=== PATIENT | female | born 1985 | race Caucasian/White ===

== ENCOUNTER 2016-10-04 20:00 | Emergency (ER) | payer MEDICAID ==
[~2016-10-04] VITALS: Ht 154.9 cm; Wt 68.0 kg
[2016-10-04 20:00] VITALS: BP_SYST 165
--- NOTE | 2016-10-04 20:00 | NUR ---
Patient to ER bed 6 to gown for evaluation. Side rails up. Report given to ANNAMARIE ELIZABETH.
--- NOTE | 2016-10-04 20:05 | NUR ---
Pt states having abdominal pain in upper left quadrant, pain scale 7/10 for last 2-3 days. Pt states having intermittent nausea, vomiting, and diarrhea since yesterday, abdomen round and tender to palpation. Pt states drinking beer earlier today at home. Pt denies any other complaints.
--- NOTE | 2016-10-04 20:05 | NUR ---
ER KATHY Gan at bedside examining patient.
[2016-10-04] MEDS ORDERED: PANTOPRAZOLE SODIUM 40 MG/VIAL (PROTONIX) IVP ONE (20:15)
[2016-10-04] MEDS ORDERED: NACL 0.9% 1,000 ML IV ONE (20:15)
[2016-10-04] MEDS ORDERED: ONDANSETRON HCL 4 MG/2 ML VIAL IVP ONE (20:15)
--- NOTE | 2016-10-04 21:00 | NUR ---
# 20 gauge angiocath placed to L AC. Use of asceptic technique. Blood return noted. Blood for lab drawn from site. Flushed with 10 cc of normal saline. No evidence of infiltration noted. Patient tolerated well.
[2016-10-04 21:01] LABS: BILIRUBIN,URINE NEGATIVE (NEGATIVE); BLOOD, URINE 2+ (NEGATIVE); CLARITY/URINE SL CLOUDY (CLEAR); COLOR,URINE YELLOW (YELLOW); GLUCOSE,URINE NEGATIVE (NEGATIVE); KETONES,URINE NEGATIVE (NEGATIVE); LEUKOCYTE ESTERASE ,URINE TRACE (NEGATIVE); NITRITE, URINE NEGATIVE (NEGATIVE); PROTEIN URINE 2+ (NEGATIVE); UROBILINOGEN,URINE 0.2 (0.2-1.0)
[2016-10-04 21:17] LABS: COCAINE, URINE POSITIVE (NEG <=150)
[2016-10-04 21:18] LABS: BARBITURATE, URINE NEGATIVE (NEG <=200); BENZODIAZEPINE, URINE NEGATIVE (NEG <=150); CANNABINOID, URINE NEGATIVE (NEG <=50); METHAMPHETAMINES SCREEN,URINE NEGATIVE (NEG <=500); OPIATE, URINE NEGATIVE (NEG <=100); PHENCYCLIDINE SCREEN,URINE NEGATIVE (NEG <=25); UR TRICYCLIC ANTIDEPRESSANTS NEGATIVE (NEG <=300); URINE AMPHETAMINE NEGATIVE (NEG <=500); URINE METHADONE NEGATIVE (NEG <=200); URINE OXYCODONE SCREEN NEGATIVE (NEG <=100); URINE PROPOXYPHENE SCREEN NEGATIVE (NEG <=300)
[2016-10-04 21:21] LABS: BACTERIA,URINE MANY /HPF (None Seen); COARSE GRANULAR CASTS,URINE 0-10 /LPF (None Seen); MUCUS,URINE None Seen /LPF (None Seen)
[2016-10-04 21:29] LABS: EOSINOPHILS % (AUTO) 0.2 % (0.0-4.0); HEMATOCRIT 36.5 % (36-48); HEMOGLOBIN 12.2 g/dL (12.0-16.0); LYMPHOCYTES # (AUTO) 1.5 K/uL (1.0-5.5); LYMPHOCYTES % (AUTO) 30.5 % (20.5-51.5); MEAN CORPUSCULAR HEMOGLOBIN 33 pg (27-31); MEAN CORPUSCULAR HGB CONC 33 % (32-36); MEAN CORPUSCULAR VOLUME 100 fL (79.0-98.0); MONOCYTES # (AUTO) 0.5 K/uL (0.0-1.0); MONOCYTES % (AUTO) 10.6 % (1.7-9.3); NEUTROPHILS % (AUTO) 57.7 % (40.0-70.0); PLATELET COUNT (AUTO) 141 K/uL (130-430); RED BLOOD CELL COUNT(AUTO) 3.65 MIL/uL (4.2-6.2); RED CELL DISTRIBUTION WIDTH 12.8 % (9.0-15.0)
[2016-10-04 21:54] LABS: CREATININE 0.6 mg/dL (0.55-1.30); POTASSIUM 3.5 mmol/L (3.5-5.1)
--- NOTE | 2016-10-04 22:00 | NUR ---
Pt stable, no signs of distress noted.
[2016-10-04 22:02] LABS: ALBUMIN 3.9 g/dL (3.4-4.8); TOTAL BILIRUBIN 0.8 mg/dL (0.0-1.0)
[2016-10-04] MEDS ORDERED: cefTRIAXone 1 GM in D5W 50 ML IV ONE (22:15)
[2016-10-04] MEDS ORDERED: cefTRIAXone 1 GM VIAL ONE (22:25)
[2016-10-04 22:33] VITALS: BP_SYST 163
--- NOTE | 2016-10-04 22:50 | NUR ---
Patient given written and verbal discharge instructions and verbalizes understanding. ER MD discussed with patient the results and treatment provided. Patient in stable condition. ID arm band removed. IV catheter removed intact and dressing applied, no active bleeding. Rx of Macrobid given. Patient educated on pain management and to follow up with PMD. Pain Scale 2/10. Pt states pain is tolerable. Opportunity for questions provided and answered.
== END 2016-10-04 22:50 | disposition home or self-care (01) ==
LOC: SED 20:03
DX: N39.0 Urinary tract infection, site not specified (principal); F14.10 Cocaine abuse, uncomplicated; R19.7 Diarrhea, unspecified
CPT/HCPCS: 36415; 76700; 80053; 80307; 81000; 81025; 83690; 85025; 87040; 87086; 96361; 96365; 96375; 99285; C9113; J0696; J2405; J7030; J7060